=== PATIENT | female | born 1965 | race Two or more races ===

== ENCOUNTER 2019-11-25 12:42 | Emergency (ER) | payer OTHER ==
[2019-11-25 12:53] VITALS: BP 145/90; PULSE 86; TEMP 98; BMI 22.2
--- NOTE | 2019-11-25 14:50 | PDOC ---
History of Present Illness - General Chief Complaint: Injury Stated Complaint: INJURY TO FACE Time Seen by Provider: 11/25/19 13:17 - History of Present Illness Initial Comments: 11/25/19 14:48 54-year-old female presents for evaluation after a trip and fall on her face 2 days ago Past History - Past Medical History Allergies/Adverse Reactions: Allergies Allergy/AdvReac Type Severity Reaction Status Date / Time No Known Allergies Allergy Verified 11/25/19 12:53 Home Medications: Ambulatory Orders Diazepam [Valium] 5 mg PO TID PRN #14 tablet 09/14/12 Naproxen [Naprosyn] 500 mg PO BID PRN #20 tablet 09/14/12 No Home Medications 0 dose .ROUTE UTDICT 09/14/12 Meclizine HCl [Antivert -] 25 mg PO TID PRN #10 tablet 11/18/12 COPD: No GI Disorders: Yes HTN: Yes - Surgical History Cholecystectomy: Yes - Immunization History Td Vaccination: Yes Immunization Up to Date: Yes - Psycho Social/Smoking Cessation Hx Smoking Status: No Smoking History: Never smoked Years of Tobacco Use: 0 Number of Cigarettes Smoked Daily: 0 Cigars Per Day: 0 Information on smoking cessation initiated: No Hx Alcohol Use: No Drug/Substance Use Hx: No Review of Systems - Review of Systems Cardiac (ROS): No: Lightheadedness ABD/GI: No: Nausea, Vomiting Neurological: Yes: Headache. No: Numbness, Dizziness *Physical Exam - Vital Signs Last Vital Signs Temp Pulse Resp BP Pulse Ox 98 F 86 18 145/90 99 11/25/19 12:50 11/25/19 12:50 11/25/19 12:50 11/25/19 12:50 11/25/19 12:50 - Physical Exam 11/25/19 14:48 GENERAL: The patient is awake, alert, and fully oriented, in no acute distress. HEAD: Right periorbital ecchymosis EYES: sclera anicteric, conjunctiva clear. ENT: Ears normal tympanic membranes normal oropharynx clear uvula midline NECK: Normal range of motion LUNGS: Breath sounds equal, clear to auscultation bilaterally. No wheezes, and no crackles. HEART: S1 and S2 without murmur, rub or gallop. ABDOMEN: Soft, nontender, normoactive bowel sounds. No guarding, no rebound. No masses. EXTREMITIES: Normal range of motion, no edema. No clubbing or cyanosis. No cords, erythema, or tenderness. NEUROLOGICAL: Cranial nerves II through XII grossly intact. PSYCH: Normal mood, normal affect. SKIN: Warm, Dry, normal turgor, no rashes or lesions noted. ED Treatment Course - RADIOLOGY Radiology Studies Ordered: Category Date Time Status CERVICAL SPINE CT W/O CONTR [CT] Stat CT Scan 11/25/19 13:[address] W/O CONTRAST [CT] Stat CT Scan 11/25/19 13:[address] WITHOUT CONTRAST [CT] Stat CT Scan 11/25/19 13:23 Completed Medical Decision Making - Medical Decision Making 11/25/19 14:49 Facial contusion follow-up with primary care physician Discharge - Discharge Information Problems reviewed: Yes Clinical Impression/Diagnosis: Facial contusion Condition: Stable Disposition: HOME - Admission No - Follow up/Referral Referrals: Yash Dowd MD [Staff Physician] - - Patient Discharge Instructions Additional Instructions: Return to the emergency room for worsening symptoms. Tylenol and Motrin for pain. Follow-up with your primary care physician in 1 to 2 days for further evaluation and treatment options. - Post Discharge Activity
== END 2019-11-25 14:53 | disposition home or self-care (01) ==
LOC: JERFT 12:42
DX: S00.83XA Contusion of other part of head, initial encounter (principal); W18.39XA Other fall on same level, initial encounter; Y93.89 Activity, other specified; Y92.414 Local residential or business street as the place of occurrence of the external cause; Y99.8 Other external cause status; I10 Essential (primary) hypertension; Z90.49 Acquired absence of other specified parts of digestive tract
CPT/HCPCS: 70450-TC; 70486-TC; 72125-TC; 99281-25

== ENCOUNTER 2020-04-23 12:50 | Emergency (ER) | payer OTHER ==
--- NOTE | 2020-04-23 13:05 | PDOC ---
Rapid Medical Evaluation Chief Complaint: Ingestion Time Seen by Provider: 04/23/20 13:00 Medical Evaluation: Allergies Allergy/AdvReac Type Severity Reaction Status Date / Time No Known Allergies Allergy Verified 03/03/20 15:47 04/23/20 13:02 I have performed a brief in-person evaluation of this patient. The patient presents with a chief complaint of: accidentally drunk water with clorox in water over halt an hour ago. pt was cleaning with water and had put " small tiny amount " of clorox in the water which she accidentally drunk. report burning sensation in the epigastric region. Denies any other symptoms Pertinent physical exam findings:. A&O x 3 in NAD I have ordered the following: deffered The patient will proceed to the ED for further evaluation. Discharge Disposition - Diagnosis Ingestion of corrosive chemical Qualifiers: Encounter type: initial encounter Injury intent: accidental or unintentional Qualified Code(s): T54.91XA - Toxic effect of unspecified corrosive substance, accidental (unintentional), initial encounter - Discharge Dispostion Condition at time of disposition: Stable - Referrals - Patient Instructions - Post Discharge Activity
[2020-04-23 13:10] VITALS: TEMP 98.1; BMI 23.4
[2020-04-23] MEDS ORDERED: FAMOTIDINE 20 MG TABLET PO ONE (13:13)
[2020-04-23] MEDS ORDERED: MAG HYDROX/AL HYDROX/SIMETH 30 ML UNIT-DOSE CUP PO ONE (13:13)
[2020-04-23] MEDS ORDERED: MAG HYDROX/AL HYDROX/SIMETH 30 ML UNIT-DOSE CUP ONE (13:51)
[2020-04-23] MEDS ORDERED: FAMOTIDINE 20 MG TABLET ONE (13:51)
--- NOTE | 2020-04-23 13:53 | PDOC ---
History of Present Illness - General Chief Complaint: Ingestion Stated Complaint: Ingestion Time Seen by Provider: 04/23/20 13:00 History Source: Patient, Spouse Exam Limitations: Language Barrier (blabfeed #[id number]) - History of Present Illness Initial Comments: 04/23/20 13:47 HISTORY OF PRESENT ILLNESS: 54-year-old woman past medical history of hypertension presents emergency department for evaluation of accidental ingestion of diluted Clorox. Patient states her made a cleaning solution for the bathroom containing approximately half ounce of Clorox in a 16 ounce bottle of water with a couple of drops of the dish soap. placed a water bottle in the fridge and when the came home saw it in the fridge was thirsty and had about 2 mouthfuls before realizing there was cleaning products in the solution. Patient put the water bottle down and drink some fresh water from the tap and then presented to the emergency department for evaluation. Patient has not vomited. Patient reports a burning sensation to her chest and epigastric region. No recent travel or sick contacts. PAST MEDICAL HISTORY: Hypertension SURGICAL HISTORY: Denies ALLERGIES: No known drug allergies REVIEW OF SYSTEMS General/Constitutional: Denies fever or chills. Denies weakness, weight change. HEENT: Denies change in vision. Denies ear pain or discharge. Denies sore throat. Cardiovascular: Denies chest pain or shortness of breath. Respiratory: Denies cough, wheezing, or hemoptysis. Gastrointestinal: See HPI Genitourinary: Denies dysuria, frequency, or change in urination. Musculoskeletal: Denies joint or muscle swelling or pain. Denies neck or back pain. Skin and breasts: Denies rash or easy bruising. Neurologic: Denies headache, vertigo, loss of consciousness, or loss of sensation. Psychiatric: Denies depression or anxiety. Endocrine: Denies increased thirst. Denies abnormal weight change. Hematologic/Lymphatic: Denies anemia, easy bleeding, or history of blood clots. Allergic/Immunologic: Denies hives or skin allergy. Denies latex allergy. PHYSICAL EXAM General Appearance: Well-appearing, appropriately dressed. No apparent distress, no intoxication. HEENT: EOMI, PERRLA, normal ENT inspection, normal voice, TMs normal, pharynx normal. No conjunctival pallor. No photophobia, scleral icterus. Neck: Supple. Trachea midline. No tenderness, rigidity, carotid bruit, stridor, lymphadenopathy, or thyromegaly. Respiratory/Chest: Lungs CTAB. No shortness of breath, chest tenderness, respiratory distress, accessory muscle use. No crackles, rales, rhonchi, stridor, wheezing, dullness Cardiovascular: RRR. S1, S2. No JVD, murmur, bradycardia, tachycardia. Vascular Pulses: Dorsalis-Pedis (R): 2+, Dorsalis-Pedis (L): 2+ Gastrointestinal/Abdominal: Normal bowel sounds. Abdomen soft, non-distended. No tenderness or rebound tenderness. No organomegaly, pulsatile mass, guarding, hernia, hepatomegaly, splenomegaly. Lymphatic: No adenopathy, tenderness. Musculoskeletal/Extremities: Normal inspection. FROM of all extremities, normal capillary refill. Pelvis Stable. No CVA tenderness. No tenderness to extremities, pedal edema, swelling, erythema or deformity. Integumentary: Appropriate color, dry, warm. No cyanosis, erythema, jaundice or rash Neurologic: actuarial analyst II-XII intact. Fully oriented, alert. Appropriate mood/affect. Motor strength 5/5. No appreciable EOM palsy, facial droop or sensory deficit. Past History - Medical History Allergies/Adverse Reactions: Allergies Allergy/AdvReac Type Severity Reaction Status Date / Time No Known Allergies Allergy Verified 04/23/20 13:07 Home Medications: Ambulatory Orders Enalapril Maleate [Vasotec -] 5 mg PO DAILY 04/23/20 Anemia: No Asthma: No Cancer: No Cardiac Disorders: No CVA: No COPD: No CHF: No DVT: No Dementia: No Diabetes: No Dialysis: No GI Disorders: Yes Disorders: No HTN: Yes Hypercholesterolemia: No Kidney Stones: No Liver Disease: No Psychiatric Problems: No Seizures: No Thyroid Disease: No Lung CA: No - Surgical History Abdominal Surgery: No Appendectomy: No Cardiac Surgery: No Cholecystectomy: Yes Gastric Stapling: No GI Surgery: No Lung Surgery: No Neurologic Surgery: No - Immunization History Td Vaccination: Yes Immunization Up to Date: Yes - Psycho-Social/Smoking History Smoking Status: No Smoking History: Never smoked Years of Tobacco Use: 0 Number of Cigarettes Smoked Daily: 0 Cigars Per Day: 0 - Substance Abuse Hx (Audit-C & DAST Scrn) How often the patient has a drink containing alcohol: Never Score: In Men: 4 or > Positive; In Women: 3 or > Positive: 0 Screen Result (Pos requires Nsg. Audit-10AR): Negative In the last yr the pt used illegal drug/Rx for NonMed reason: No Score: Yes response is considered Positive: 0 Screen Result (Positive result requires Nsg. DAST-10): Negative *Physical Exam - Vital Signs Last Vital Signs Temp Pulse Resp BP Pulse Ox 98.1 F 94 H 18 130/87 97 04/23/20 13:02 04/23/20 13:02 04/23/20 13:02 04/23/20 13:02 04/23/20 13:02 Medical Decision Making - Medical Decision Making 04/23/20 13:50 A/P: 54-year-old woman with chest and epigastric burning status post accidental ingestion of bleach solution Bleach solution concentrate approximately 1:32 according to the who mixed it Physical exam is unremarkable No drooling, stridor, pharyngeal erythema or vomiting present Patient is speaking in long full sentences. Orders per [facility] Reassess 04/23/20 14:58 Patient reports feeling better after receiving medication prescribed at [facility]. Discharge home to follow-up with primary doctor and referral for GI. Portions of this note have been documented using voice recognition software. As a result, errors may occur in the indirect sales exec process. Effort has been made to correct all grammatical and indirect sales exec error, but some may have been missed which may produce sporadic inaccurate indirect sales exec or nonsensical phrases. Discharge - Discharge Information Problems reviewed: Yes Clinical Impression/Diagnosis: Ingestion of corrosive chemical Qualifiers: Encounter type: initial encounter Injury intent: accidental or unintentional Qualified Code(s): T54.91XA - Toxic effect of unspecified corrosive substance, accidental (unintentional), initial encounter Condition: Fair Disposition: HOME - Admission No - Follow up/Referral Referrals: Marilou yWnn DO [Primary Care Provider] - Briana Triplett DO [Staff Physician] - - Patient Discharge Instructions Additional Instructions: Be careful with liquids that you drink. Drink plenty of water. You may drink milk to help with pain. Be given a referral for a GI specialist. Call to schedule an appointment for reevaluation as needed. Your emergency department visit is incomplete until you follow-up with your primary doctor. Return to the emergency department for any new or worsening symptoms. Thank you very much for choosing us to provide your emergent healthcare needs. Tenga cuidado con los lquidos que kyree. Beber abundante agua. Puede antony leche para ayudar con el dolor. Recibir clive referencia para un especialista GI. Llame para programar clive deborah para la reevaluacin segn sea necesario. Flores visita al departamento de emergencias est incompleta hasta que nathan un seguimiento con flores mdico de cabecera. Regrese al departamento de emergencias por cualquier sntoma nuevo o que empeore. Muchas margi por elegirnos para satisfacer mino necesidades de atencin mdica emergentes. - Post Discharge Activity
[2020-04-23 15:18] VITALS: BP 127/73; PULSE 89
== END 2020-04-23 15:15 | disposition home or self-care (01) ==
LOC: JER 12:50
DX: T54.91XA Toxic effect of unspecified corrosive substance, accidental (unintentional), initial encounter (principal)
CPT/HCPCS: 99283-25

== ENCOUNTER 2020-09-19 15:40 | Emergency (ER) | payer OTHER | END 2020-09-19 16:40 | disposition home or self-care (01) | LOC: JVIRT 15:40 | DX: Z03.818 Encounter for observation for suspected exposure to other biological agents ruled out (principal) | CPT/HCPCS: C9803; G2012-GT; U0003 ==